=== PATIENT | male | born 1970 | race Caucasian/White ===

== ENCOUNTER → 2017-06-12 | Day surgery (SDC) | payer OTHER ==
[~2017-06-12] MED LIST: ASPIRIN325 PO; SYNTHROID50 MCG PO
--- NOTE | 2017-06-18 08:24 | OP ---
[facility] [address] [place] [address] OPERATIVE REPORT Name: RONALD LACY Room: [facility]#: [id number] Admission: 06/12/17 Attend Phys: Hansel Massey Discharge: Date of : 74 Report #: [id number] THIS REPORT FOR: //name// CC: Alesha Massey DATE OF SERVICE: 06/12/2017 PREOPERATIVE DIAGNOSIS: Left chest wall benign mass, 4 cm. POSTOPERATIVE DIAGNOSIS: Left chest wall benign mass, 4 cm. OPERATION: Excision of left chest wall benign mass, 4 cm. SURGEON: Hansel Massey MD ANESTHESIA: General. ESTIMATED BLOOD LOSS: Minimal. SPECIMEN: Left chest wall mass. DESCRIPTION OF PROCEDURE: After informed consent was obtained, the patient was brought to the operating room and placed supine. SCDs were placed and working, preoperative antibiotics were administered, and general anesthesia was induced. The left chest was prepped and draped in the usual sterile fashion. A 5-cm incision was made over the lesion in the left chest. Cautery dissection was made down through the subcutaneous fat. The lipoma was encountered. This was carefully dissected out with cautery and removed. The skin was then closed in 2 layers with 3-0 Vicryl for the deep layer and 4-0 Monocryl in running subcuticular fashion for the skin. Incision was dressed with Steri-Strips and gauze. COMPLICATIONS: None. DISPOSITION: The patient was taken to recovery in satisfactory condition. <ELECTRONICALLY SIGNED> By: Hansel Massey MD 06/18/17 0824 [id number] [id number] Massey MD /nt
--- NOTE | 2017-06-25 10:41 | S ---
[facility] [address] [place] [address] SURGICAL PATH RPT PROCEDURE Name: REGINOPINEDA Donell Room: [facility]#: [id number] Admission: 06/12/17 Date of : 74 Discharge: Report #: [id number] Path Case #: [id number] PATHOLOGY REPORT COLLECTION DATE: 06/12/2017 RECEIVED DATE: 06/12/2017 SUBMITTING PHYS: Dr. Hansel Massey OTHER PHYS: Dr. Alesha Samuel ADDENDUM REPORT (Order Date: 06/20/2017 00:00) ADDENDUM COMMENT: Please see next page for scanned image of report submitted by [facility] publicity consultant pathologist, Parul Gil M.D. (ERIKA:amj; d/t: 06/25/2017) ELECTRONICALLY SIGNED BY: Aftab Bella M.D. 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 SEE COMMENT. (ERIKA:naila; 06/18/2017) COMMENT: Sections show a spindled cell neoplasm which is associated with extensive myxoid features throughout and is noted to be solid, more centrally, with intermingling of fat in areas more peripheral. In scattered areas there is a delicate plexiform capillary network and the spindled cells show, at most, minimal atypia without definite lipoblasts seen. Mast cells are seen scattered throughout. There is no necrosis and essentially absent mitotic activity. The process is seen to extend to the black inked surfaces in many areas. A panel of properly controlled immunohistochemical stains performed on A3 shows the following results: S-100: Predominantly negative with focal nuclear staining of spindled cells and with positivity of periphery of intermingled adipocytes CD34: Mostly negative with patchy equivocal positive Desmin: Negative Per discussion of preliminary findings with Dr. Massey on afternoon of 06/13/2017, he notes this lesion was [place] [address] SURGICAL PATH RPT PROCEDURE Name: PINEDA FAITH Room: [facility]#: [id number] Admission: 06/12/17 Date of : 74 Discharge: Report #: [id number] Path Case #: [id number] and had a jelly-like appearance. 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 This case will be submitted to the [facility] Department of Soft Tissue Surgical Pathology in consultation and an addendum report will be issued. Discussed with Dr. Massey on afternoon of 06/18/2017. (ERIKA:naila; 06/18/2017) PATHOLOGIST: Aftab Bella M.D. REPORT ELECTRONICALLY SIGNED BY: Aftab Bella M.D. DATE/TIME: 06/18/2017 12:41 * * * * * * * * * * * * GROSS PATHOLOGY: The specimen is received in formalin, labeled "Pineda Faith and right chest wall mass", are several yellow lobulated soft tissues that aggregately measure 6.2 x 4.0 x 2.0 cm. The largest fragment (5.2 x 3.2 x 1.7 cm) is inked black, serially sectioned to show a predominantly pale yellow soft cut surface. Sectioning of the remaining soft tissue shows a glistening, yellow homogeneous cut surface. Recruitment And Outreach Assistant sections submitted as follows: A1-3 largest fragment inked black A4-5 remaining fragments (SWS; 06/12/2017) After initial microscopic examination, the specimen is re-examined. The larger segment, which is inked black, displays yellow-rutherford, lobulated to light rutherford, mucinous-appearing cut surfaces. Additional apprenticeship training representative sections within mucinous areas are submitted in cassettes A6 through A10. (CAA; 06/17/2017) CLINICAL HISTORY: Chest wall mass INITIAL CPT CODE(S): A; 48508, 36334, 06345, 71298 Professional services performed [place] [address] Technical services performed by [facility] at [address] [place] [address], [address], [place] [address]. [facility] [place] [address] SURGICAL PATH RPT PROCEDURE Name: PINEDA FAITH Room: [facility]#: [id number] Admission: 06/12/17 Date of : 74 Discharge: Report #: [id number] Path Case #: [id number] [place] [address] PHONE: [phone] DIRECTOR: David Emerson M.D. * * * END OF REPORT * * *
== END | disposition home or self-care (01) ==
LOC: M.SUR 09:55
DX: D17.1 Benign lipomatous neoplasm of skin and subcutaneous tissue of trunk (principal); Z91.040 Latex allergy status; Z79.82 Long term (current) use of aspirin